=== PATIENT | male | born 1960 | race Caucasian/White ===

== ENCOUNTER 2016-07-01 20:10 | Inpatient (IN) | payer OTHER ==
--- NOTE | ~2016-07-01 | CO ---
Unit #: [id number] #: [id number] Patient: BRIANA CLIFTON [id number] [place] [address] [id number] MR#: [id number] NAME: BRIANA CLIFTON. ROOM: P208 Age: 56 Sex: M Admission Date: 07/01/2016 : 1960 Attending Physician: Phoenix Cuellar M.D. Primary Care Physician: Sandra Melara Aprn Consultation Date: 07/02/2016 CONSULTATION REPORT ORDERING PROVIDER Dr. Cuellar. REASON FOR CONSULT Respiratory infection. SUBJECTIVE The patient reports that for the last few days, he has had low-grade fever, sore throat, cough, and congestion. He reports positive body aches and chills. Denies any wheezing. OBJECTIVE Examination shows slightly erythematous pharynx, otherwise was unremarkable. Temperature was noted to be slightly elevated at 99.4. ASSESSMENT Respiratory infection. PLAN Plan is to get a strep and a flu swab, and start the patient on cough medication and ibuprofen. Dictated by... Helena Stokes A.P.R.N. for Jose Ramon Oleary/talia TD: 07/03/2016 18:40 JOB #: [id number] CONSULTATION REPORT X HELENA STOKES APRN X CONSULTATION REPORT
--- NOTE | ~2016-07-01 | PN ---
Unit #: [id number] #: [id number] Patient: BRIANA WILSON [id number] [facility] [address] [place] [address] [id number] MR#: [id number] NAME: BRIANA WILSON ROOM: P208 Age: 56 Sex: M Admission Date: 07/01/2016 : 1960 Attending Physician: Phoenix Cuellar M.D. Admitting Physician: Phoenix Cuellar M.D. Primary Care Physician: Jessenia Luong PROGRESS NOTES DATE OF SERVICE: 07/04/2016 SUBJECTIVE Mr. Wilson is a 56-year-old white male, who was seen today and chart was reviewed and the case was discussed with the staff. He has been anxious and withdrawn, though has not shown any agitation or irritability and has been cooperative with the treatment recommendations. MENTAL STATUS EXAMINATION Middle-aged white male, who was casually dressed with a fair personal hygiene, appears to be in no acute distress or discomfort. He was awake and alert on interaction with intact orientation. His mood was anxious with a congruent affect. He denies any suicidal or homicidal ideations. His insight and judgment remain slightly impaired. TREATMENT PLAN 1. We will continue him on his current medications and treatment protocol and we will monitor his response to the medications and make further adjustments as needed. 2. We will continue to follow up. Dictated by... Jose Ramon Rod/kalpanal TD: 07/06/2016 12:42 JOB #: [id number] BRITTNI PROGRESS NOTES X Phoenix Culelar MD PROGRESS NOTE
--- NOTE | ~2016-07-01 | PA ---
Unit #: [id number] #: [id number] [facility]: [facility] [id number] [facility] [address] [place] [address] [id number] MR#: [id number] NAME: BRIANA WILSON ROOM: P208 Age: 56 Sex: M Admission Date: 07/01/2016 : 1960 Date of Assessment: 07/02/2016 Attending Physician: Phoenix Cuellar M.D. Admitting Physician: Phoenix Cuellar M.D. Primary Care Physician: Sandra Melara Aprn PSYCHIATRIC ASSESSMENT DATE OF SERVICE 07/02/2016. IDENTIFYING DATA Mr. Wilson is a 56-year-old white male, who is a resident of [place], [place], and is known to us from previous encounter, and was recently discharged from my care and was self-referred back to the hospital. CHIEF COMPLAINT "I'm suicidal and if I had a gun, I would shoot myself." HISTORY OF PRESENT ILLNESS Mr. Wilson is a 56-year-old white male with dual diagnosis of mood disorder and substance abuse, who was recently active under my care and was stepped down to the outpatient treatment program and now he brought himself back to the hospital stating that he is suicidal and that if he had a gun, he would shoot himself in the chest and that he has been looking for a gun all day long and reports that he is employed and is in [facility] from his work until he completes his treatment program and reports that he has been living with two friends, but he is moving into [facility] and that the loss of his stolen car, phone, and belongings, which has caused him grief over the past couple of years and does endorse increasing depression, anxiety, irritability, feelings of hopelessness and helplessness and suicidal ideations with intent and plan. SUBSTANCE ABUSE HISTORY The patient reports history of alcohol, cannabis, cocaine, opioids, and methamphetamine abuse, and more recently, alcohol, opioids, and cocaine has been his drug of choice. PAST PSYCHIATRIC HISTORY The patient has had a history of multiple inpatient psychiatric and chemical dependency treatment at [facility] and has done outpatient treatment program as well and has been diagnosed and treated for mood disorder. Review of the medical records indicate that currently he is supposed to be on Wellbutrin, but has been noncompliant with medications. PAST MEDICAL HISTORY Significant for hypertension. ALLERGIES No known medication allergies. Unit #: [id number] #: [id number] Patient: BRIANA WILSON PERSONAL AND SOCIAL HISTORY A 56-year-old white male, who reports that he is single, unemployed, and homeless and has poor social support system. MENTAL STATUS EXAMINATION Middle-aged white male, who was casually dressed with fair personal hygiene, appears to be in no acute distress or discomfort. He was awake and alert on interaction with intact orientation to time, place, and person. His mood was anxious and depressed with a congruent affect. His speech was slow and goal directed. He denies any suicidal or homicidal ideations and also denies any auditory or visual hallucinations. His insight and judgment remain slightly impaired. DIAGNOSTIC IMPRESSION Psychiatric: Major depressive disorder, recurrent, moderate, without psychotic features; alcohol dependence, moderate; opioid dependence, moderate; and cocaine abuse, moderate. Medical: Hypertension. Stressors: Moderate psychosocial stressors. TREATMENT PLAN 1. The patient has presented with a history of mood disorder and substance abuse and has been decompensating and will need inpatient hospitalization for safety and stabilization. We will start him back on his home medications and we will monitor response and make further adjustments as needed. 2. Supportive therapy was provided to the patient. ESTIMATED LENGTH OF STAY 4 to 5 days. ABILITY TO HELP SELF Limited. WILLINGNESS TO HELP SELF The patient appears to be willing to help self. STRENGTHS 1. Communicative. 2. Cooperative. PROBLEMS 1. Chronic dysphoric symptoms. 2. Chronic chemical dependency. 3. Poor social support system. DISCHARGE CRITERIA This will be contingent upon the patient's ability to go through detox without having any significant withdrawal symptoms as well as his ability to stay safe to himself, particularly after discharge from the hospital. Dictated by... Jose Ramon Rod/talia Unit #: [id number] #: [id number] Patient: BRIANA WILSON TD: 07/02/2016 16:20 JOB #: [id number] PSYCHIATRIC ASSESSMENT X Phoenix Cuellar A MD X PSYCHIATRIC ASSESSMENT
--- NOTE | ~2016-07-01 | DS ---
Unit #: [id number] #: [id number] [facility] [id number] [facility] [address] [place] [address] [id number] MR#: [id number] NAME: BRIANA WILSON ROOM: P208 Age: 56 Sex: M Admission Date: 07/01/2016 : 1960 Discharge Date: 07/05/2016 Attending Physician: Phoenix Cuellar M.D. Primary Care Physician: Sandra Melara Aprn DISCHARGE SUMMARY IDENTIFYING DATA Mr. Wilson is a 56-year-old white male, who is a resident of [place], [place], and is known to us from previous encounter, and was self-referred to the hospital. DISCHARGE DIAGNOSES Psychiatric: Major depressive disorder, recurrent, moderate, without psychotic features; alcohol dependence, moderate; opioid dependence, moderate; cocaine abuse, moderate. Medical: Hypertension. Stressors: Moderate psychosocial stressors. HISTORY OF PRESENT ILLNESS Please see initial psychiatric evaluation for details. PAST PSYCHIATRIC HISTORY Please see initial psychiatric evaluation for details. PAST MEDICAL HISTORY Please see initial psychiatric evaluation for details. HOSPITAL COURSE The patient was admitted to the adult chemical dependency and psychiatric unit at [facility] and was oriented to the hospital environment. Routine p.r.n. medications were initiated and was started back on his home medications. Medications were adjusted and he was closely monitored. He was taking the medications regularly and was tolerating them fairly well and was able to show a decent and therapeutic response and as such, it was decided that he will be discharged home and will continue treatment on an outpatient basis. DISCHARGE MEDICATIONS Wellbutrin XL 150 mg in the morning for depression, amlodipine 5 mg a day for hypertension. DISCHARGE CONDITION Stable. PROGNOSIS Fair. Dictated by... Phoenix Cuellar M.D. Unit #: [id number] #: [id number] Patient: BRIANA WILSON IAA/modl TD: 07/06/2016 00:09 JOB #: [id number] DISCHARGE SUMMARY X Phoenxi Cuellar MD X DISCHARGE SUMMARY
--- NOTE | ~2016-07-01 | HP ---
Unit #: [id number] #: [id number] Patient: BRIANA CLIFTON [id number] [place] [address] [id number] MR#: [id number] NAME: BRIANA CLIFTON. ROOM: P208 Age: 56 Sex: M Admission Date: 07/01/2016 : 1960 Attending Physician: Phoenix Cuellar M.D. Admitting Physician: Phoenix Cuellar M.D. Primary Care Physician: Sandra Melara Aprn HISTORY AND PHYSICAL HISTORY OF PRESENT ILLNESS The patient is a 56-year-old male admitted to [address] [place] [address] on 07/01/2016 for suicidal ideations. PAST MEDICAL HISTORY 1. Hypertension 2. Hep C 3. Smoker 4. Substance abuse PAST SURGICAL HISTORY 1. Appendectomy 2. Hemorrhoidectomy SOCIAL HISTORY The patient is current on FMLA. He lives in a transformation house. He smokes one pack of cigarettes daily and uses crack on a daily basis. FAMILY MEDICAL HISTORY Noncontributory. ALLERGIES No known drug allergies. CURRENT MEDICATIONS Norvasc and Wellbutrin REVIEW OF SYSTEMS CONSTITUTIONAL: No fever or chills. HEENT: The patient complains of sore and cough. CARDIOVASCULAR: Denies chest pain, irregular heart rhythm or palpitations. CHEST: Denies shortness of breath or cough. No hemoptysis. GASTROINTESTINAL: Denies nausea, vomiting, diarrhea or chronic constipation. ENDOCRINE: Denies history of increased thirst or urination. No recent significant weight loss or gain. GENITOURINARY: Denies dysuria, frequency, or hematuria. SKIN: Denies any rashes. HEMATOLOGIC: Denies history of increased bleeding or bruising. MUSCULOSKELETAL: Denies any hot, swollen joints. No generalized muscle pain. NEUROLOGIC: Denies problems with vision or speech. No frequent, severe headaches. No numbness, tingling or weakness in any extremities. Denies Unit #: [id number] #: [id number] Patient: BRIANA CLIFTON loss of bladder or bowel control. PHYSICAL EXAM GENERAL: He is awake, alert and oriented in no acute distress. VITAL SIGNS: Temperature 99.4, heart rate 92, respiration 20, blood pressure 160/84. HEIGHT: 5'9". WEIGHT: 200 pounds. SKIN: Warm and dry without rash or lesion. HEENT: Pharyngeal arrhythmia NECK: Supple without lymphadenopathy or thyromegaly. HEART: Regular rate and rhythm without murmur. LUNGS: Clear. ABDOMEN: Soft, nontender. : Not done. EXTREMITIES: No evidence of cyanosis, clubbing or edema. Moves all without focal deficit. NEUROLOGICAL: Grossly within normal limits. Cranial Nerves: II: Visual taylor are intact. III, IV AND : Extraocular movements are intact. Pupils are equal, round and reactive to light. V: Facial sensation is grossly normal. VII: Facial movements and expression are normal. VIII: Auditory acuity grossly intact. IX, X: Uvula is midline. Phonation is normal. XI: Patient shrugs shoulders and turns head normally. XII: Tongue protrudes in the midline. Sensory and Motor Function: Sensory and motor sensation is grossly normal. Motor: moves all extremities well. IMPRESSION 1. Psychiatric admission. 2. Substance abuse. 3. Nicotine dependence. 4. Hypertension. 5. Hepatitis C. 6. Cough and low grade fever. RECOMMENDATIONS Psychiatric per psychiatrist. MEDICAL: No contraindication to participate in facility activities. MEDICAL PROGNOSIS Good. MEDICAL CONDITION Stable. Dictated by... Archie Mejia/ronnie TD: 07/03/2016 22:36 Unit #: [id number] #: [id number] Patient: BRIANA CLIFTON JOB #: [id number] HISTORY AND PHYSICAL X MICHAELA BAUMAN APRN X HISTORY AND PHYSICAL
--- NOTE | ~2016-07-01 | PN ---
Unit #: [id number] #: [id number] Patient: BRIANA WILSON [id number] [facility] [address] [place] [address] [id number] MR#: [id number] NAME: BRIANA WILSON ROOM: P208 Age: 56 Sex: M Admission Date: 07/01/2016 : 1960 Attending Physician: Phoenix Cuellar M.D. Admitting Physician: Phoenix Cuellar M.D. Primary Care Physician: Jessenia Luong NOTES DATE OF SERVICE: 07/03/2016 SUBJECTIVE Mr. Wilson is a 56-year-old white male who was seen today and chart was reviewed, and case was discussed with the staff. He has been anxious, withdrawn, and rather seclusive to himself and has been exhibiting some persistent depressive symptoms. Meanwhile, he has been taking medications and tolerating fairly well with no reported side effects. MENTAL STATUS EXAMINATION Middle-aged white male who was casually dressed with fair personal hygiene, appears to be in no acute distress or discomfort. He was awake and alert on interaction with intact orientation. His mood was anxious with a congruent affect. He denies any suicidal or homicidal ideation. He denies any auditory or visual hallucinations. His insight and judgment remain slightly impaired. TREATMENT PLAN We will continue him on his current treatment protocol. We will monitor his response and make further adjustments as needed. Dictated by... Jose Ramon Rod/talia TD: 07/05/2016 03:16 JOB #: [id number] BRITTNI PROGRESS NOTES X Phoenix Cuellar MD PROGRESS NOTE
[2016-07-02 12:58] LABS: BASOPHIL% 0.6 % (0-2.5); EOSINOPHIL# 0.1 X10e3 (0-0.7); EOSINOPHIL% 1.1 % (0.0-7.0); HEMATOCRIT 41.5 % (38.0-50.0); HEMOGLOBIN 13.7 gm/dL (13.0-16.0); LYMPHOCYTE# 0.7 X10e3 (1.0-3.5); LYMPHOCYTE% 13.7 % (17.0-45.0); MEAN CORPUSCULAR HEMOGLOBIN 29.1 PG (28-34); MEAN CORPUSCULAR HGB CONC 33.1 g/dL (30-36); MEAN PLATELET VOLUME 7.7 FL (6.5-11.5); MONOCYTE# 1.1 X10e3 (0-1.0); MONOCYTE% 23.7 % (3.0-12.0); NEUTROPHIL# 2.9 X10e3 (1.5-7.1); NEUTROPHIL% 60.9 % (40-75); PLATELET COUNT 211 X10e3 (140-420); RED BLOOD COUNT 4.72 X10e (3.90-5.60); RED CELL DISTRIBUTION WIDTH 14.6 % (11.0-15.5); WHITE BLOOD COUNT 4.8 X10e3 (4.0-10.5)
[2016-07-02 13:01] LABS: DIFF IND YES
[2016-07-02 13:10] LABS: ALBUMIN SERUM 3.2 g/dL (3.5-5.0); BILIRUBIN,TOTAL 0.9 mg/dL (0.2-2.0); BUN/CREATININE RATIO 7.14; CALCIUM SERUM 8.6 mg/dL (8.4-10.2); CREATININE SERUM 1.4 mg/dL (0.6-1.4); GLOM FILT RATE Estimated 55.7 mL/min (>60); POTASSIUM 3.5 mmol/L (3.5-5.1); PROTEIN TOTAL SERUM 5.7 g/dL (6.0-8.3)
[2016-07-02 13:16] LABS: PLATELET ESTIMATE NORMAL (NORMAL); RBC NORMAL YES
[2016-07-02 13:37] LABS: THYROID STIMULATING HORMONE 0.45 uIU/ml (0.34-5.60)
[2016-07-02 13:44] LABS: FREE THYROXIN (T4) 0.77 ng/dL (0.58-1.64)
[2016-07-03 12:27] LABS: INFLUENZA A NEG (NEG); INFLUENZA B NEG (NEG)
[2016-07-03 12:54] LABS: URINE APPEARANCE TURBID; URINE BILIRUBIN NEG (NEG); URINE BLOOD NEG (NEG); URINE COLOR DK YELLOW; URINE GLUCOSE 500 MG/DL (NEG); URINE KETONE TRACE (NEG); URINE LEUKOCYTE ESTERASE NEG (NEG); URINE NITRATE NEG (NEG); URINE PH 5.5 (5-8); URINE PROTEIN NEG (NEG); URINE SPECIFIC GRAVITY 1.028 (1.003-1.035); URINE UROBILINOGEN 0.2 MG/DL (NEG)
[2016-07-03 13:32] LABS: AMPHETAMINE NEG (NEG); BARBITURATES NEG (NEG); BENZODIAZEPINES NEG (NEG); COCAINE POS (NEG); MARIJUANA NEG (NEG); OPIATES NEG (NEG); TRICYCLIC ANTIDEPRESSANTS NEG (NEG); U METHADONE NEG (NEG)
== END 2016-07-05 12:39 | disposition home or self-care (01) | DRG 885 ==
LOC: P2S 20:10
PROVIDERS: Psychiatry & Neurology Psychiatry
DX: F33.1 Major depressive disorder, recurrent, moderate (principal); F11.20 Opioid dependence, uncomplicated; I10 Essential (primary) hypertension; F10.20 Alcohol dependence, uncomplicated; F14.10 Cocaine abuse, uncomplicated; B19.20 Unspecified viral hepatitis C without hepatic coma; F17.210 Nicotine dependence, cigarettes, uncomplicated; J06.9 Acute upper respiratory infection, unspecified
CPT/HCPCS: 80053; 80307; 81003; 84439; 84443; 85025; 87651; 87804